=== PATIENT | male | born 1945 | race Caucasian/White ===

== ENCOUNTER 2021-01-09 07:00 | Outpatient (CLI) | payer MEDICARE | END 2021-01-09 23:59 | disposition home or self-care (01) | LOC: COV 07:00 | PROVIDERS: ATTEND Student in an Organized Health Care Education/Training Program | DX: Z20.822 Contact with and (suspected) exposure to COVID-19 (principal) ==

== ENCOUNTER 2021-12-15 21:12 | Emergency (ER) | payer MEDICARE ==
[2021-12-15 21:31] LABS: BASOPHILS # (AUTO) 0.1 10^3/uL (0.0-0.1); BASOPHILS % (AUTO) 0.5 %; EOSINOPHILS # (AUTO) 0.2 10^3/uL (0.0-0.7); EOSINOPHILS % (AUTO) 2.1 %; HCT - HEMATOCRIT 43.6 % (42.0-52.0); HGB - HEMOGLOBIN 14.6 g/dL (14.0-18.0); LYMPHOCYTES # (AUTO) 1.3 10^3/uL (1.5-3.5); LYMPHOCYTES % (AUTO) 12.5 %; MEAN CORPUSCULAR HEMOGLOBIN 29.4 pg (27.0-31.0); MEAN CORPUSCULAR HGB CONC 33.5 g/dL (32.0-36.0); MEAN CORPUSCULAR VOLUME 87.9 fL (80.0-94.0); MEAN PLATELET VOLUME 10.3 fL (7.4-11.4); MONOCYTES # (AUTO) 0.8 10^3/uL (0.0-1.0); MONOCYTES % (AUTO) 8.3 %; NEUTROPHILS # (AUTO) 7.8 10^3/uL (1.5-6.6); NEUTROPHILS % (AUTO) 76.5 %; PLT - PLATELET COUNT 205 10^3/uL (130-450); RED BLOOD COUNT 4.96 10^6/uL (4.70-6.10); RED CELL DISTRIBUTION WIDTH 12.3 % (12.0-15.0); WHITE BLOOD COUNT 10.2 x10^3/uL (4.8-10.8)
[2021-12-15] MEDS ORDERED: diltiaZEM INJ 5 MG/ML VIAL IVP STA ×2 (21:41→22:09)
--- NOTE | 2021-12-15 21:44 | ED Physician Documentation ---
PD HPI CHEST PAIN - Stated complaint Stated Complaint: HIGH HR - Chief complaint Chief Complaint: Cardiac - History obtained from History obtained from: Patient, Family () - Additional information Additional information: 75-year-old male with past medical history of high blood pressure and hyperlipidemia presents with heart palpitations starting at 8:30 PM tonight while sitting and watching the [employer] game. Patient states he had been to [place] but does endorse marijuana usage today. Denies chest pain, shortness of breath, nausea, lightheadedness. Of note he does have a history of anxiety and he has had episodes of palpitations in the past lasting about 20 minutes at a time for the past 30 years, but states it has never been protracted. Review of Systems Ten Systems: 10 systems reviewed and negative Constitutional: denies: Fever, Chills Cardiac: reports: Palpitations. denies: Chest pain / pressure PD PAST MEDICAL HISTORY - Past Medical History Past Medical History: Yes Cardiovascular: Hypertension, High cholesterol, Murmur Respiratory: Sleep apnea GI: GERD, Diverticulitis, Other HEENT: Chronic vision loss, Chronic hearing loss Psych: Depression, Anxiety, Panic attacks - Past Surgical History Past Surgical History: Yes General: Colonoscopy - Present Medications Home Medications: Ambulatory Orders Medication Instructions Recorded Confirmed Atorvastatin Calcium [Lipitor] 06/21/13 06/21/13 Citalopram [CeleXA] 10 mg PO ONCE 06/21/13 06/21/13 lisinopriL [Lisinopril] 2.5 mg PO 06/21/13 06/21/13 Aspirin Chewable [[place] 81 mg PO DAILY 06/22/13 06/22/13 Aspirin] Clonazepam 1.5 mg PO 06/22/13 06/22/13 Multivit-Min/FA/Lycopene/Lut 1 each PO 06/22/13 06/22/13 [Centrum Silver Tablet] Tadalafil [Cialis] 20 mg PO 06/22/13 06/22/13 raNITIdine [Zantac] 150 mg PO DAILY 06/22/13 06/22/13 - Allergies Allergies/Adverse Reactions: Allergies Allergy/AdvReac Type Severity Reaction Status Date / Time tetracycline [Tetracycline] Allergy Unknown Unknown Verified 12/15/21 21:16 - Social History Does the pt smoke?: No Smoking Status: Never smoker Does the pt drink ETOH?: No Does the pt have substance abuse?: No - Immunizations Immunizations are current?: Yes PD ED PE NORMAL - Vitals Vital signs reviewed: Yes - General General: Alert and oriented X 3, No acute distress, Well developed/nourished - HEENT HEENT: Atraumatic, PERRL, EOMI - Neck Neck: Supple, no meningeal sign - Cardiac Cardiac: Other (Tachycardic rate, irregular rhythm) - Respiratory Respiratory: No respiratory distress, Clear bilaterally - Abdomen Abdomen: Non tender, Non distended - Back Back: No CVA TTP - Derm Derm: Normal color, Warm and dry - Extremities Extremities: No deformity - Neuro Neuro: Alert and oriented X 3, No motor deficit, No sensory deficit - Psych Psych: Normal mood, Normal affect Results - Vitals Vitals: Vital Signs - 24 hr 12/15/21 12/15/21 12/15/21 21:16 21:49 21:57 Temperature 36.5 C Heart Rate 164 H 108 H 117 H Respiratory 18 17 21 Rate Blood Pressure 142/91 H 117/65 100/49 L O2 Saturation 97 96 97 12/15/21 12/15/21 12/15/21 22:04 22:08 22:18 Temperature Heart Rate 122 H 130 H 91 Respiratory 14 17 16 Rate Blood Pressure 109/69 114/67 107/61 O2 Saturation 96 96 95 12/15/21 12/15/21 12/15/21 22:25 22:30 22:36 Temperature Heart Rate 83 90 96 Respiratory 15 13 12 Rate Blood Pressure 103/66 106/60 107/66 O2 Saturation 96 96 96 12/15/21 12/15/21 12/15/21 22:56 23:00 23:30 Temperature Heart Rate 110 H 103 H 117 H Respiratory 17 13 12 Rate Blood Pressure 109/62 98/75 110/83 H O2 Saturation 97 96 96 12/16/21 12/16/21 12/16/21 00:00 00:30 01:00 Temperature Heart Rate 92 113 H 131 H Respiratory 9 L 12 20 Rate Blood Pressure 104/65 122/72 122/71 O2 Saturation 96 94 97 12/16/21 12/16/21 12/16/21 01:30 02:00 02:30 Temperature 36.5 C Heart Rate 119 H 129 H 136 H Respiratory 13 13 15 Rate Blood Pressure 120/74 112/64 104/79 O2 Saturation 96 97 97 12/16/21 12/16/21 12/16/21 02:52 02:55 03:00 Temperature Heart Rate 143 H 58 L 56 L Respiratory 17 12 12 Rate Blood Pressure 104/79 102/60 96/58 L O2 Saturation 99 96 97 Oxygen O2 Source Room air - EKG (time done) 2122 Rate: Rate (enter#) (162) Rhythm: Atrial fibrillation - Labs Labs: Laboratory Tests 12/15/21 12/15/21 12/15/21 21:24 21:24 21:24 WBC 10.2 RBC 4.96 Hgb 14.6 Hct 43.6 MCV 87.9 MCH 29.4 MCHC 33.5 RDW 12.3 Plt Count 205 MPV 10.3 Neut # (Auto) 7.8 H Lymph # (Auto) 1.3 L [place] # (Auto) 0.8 Eos # (Auto) 0.2 Baso # (Auto) 0.1 Absolute Nucleated RBC 0.00 Nucleated RBC % 0.0 Sodium 143 Potassium 3.3 L Chloride 103 Carbon Dioxide 32 Anion Gap 8.0 BUN 16 Creatinine 0.8 Estimated GFR (MDRD) 94 Glucose 104 H Calcium 9.5 Total Bilirubin 0.8 AST 17 ALT 17 Alkaline Phosphatase 73 Troponin I High Sens 24.4 H* Total Protein 7.2 Albumin 4.5 Globulin 2.7 Albumin/Globulin Ratio 1.7 Lipase 30 Procedures - Cardioversion Attempt 1 Indication: Tachyarrhythmia CS via: AP approach Sync: Biphasic, 150j Post cardioversion rhythm: NSR Performed by: ED PD MEDICAL DECISION MAKING - ED course ED course: 75-year-old male presents with new onset atrial fibrillation starting this evening. We will attempt rate control medication followed by procainamide. If unsuccessful, electrical cardioversion according [facility] protocol. Patient now in NSR s/p electrical cardioversion. plan to dc home to f/u with refrigeration unit repairer and obtain outpatient echocardiogram. return precautions given. CRITICAL CARE TIME DOCUMENTATION I have personally performed a history, physical exam, and my own medical decision making. I have reviewed the note and agree with the findings and plan. Upon my evaluation, this patient had a high probability of imminent or life- threatening deterioration due to atrial fibrillation with RVR, which required my direct attention, intervention, and personal management. I have personally provided 45 minutes of critical care time exclusive of time spent on separately billable procedures. Time includes review of laboratory data, radiology results, discussion with consultants, and monitoring for potential decompensation. Interventions were performed as documented above. EDW 3:09 am 12/16/21 Departure - Departure Clinical Impression: Atrial fibrillation with RVR Condition: Good Instructions: Atrial Fibrillation Dc, Sedation Procedural Comments: You are seen in the emergency department for atrial fibrillation with rapid ventricular rate (RVR). A series of medications were attempted to treat your condition and then conscious sedation with electrical cardioversion was performed. This got your heart back into a normal rhythm. You will need to follow-up with a refrigeration unit repairer and have an outpatient echocardiogram performed. Please return to the emergency department immediately if you have recurrence of symptoms or if you have any new or worsening symptoms or other concerns.
[2021-12-15 21:48] LABS: ALBUMIN 4.5 g/dL (3.2-5.5); ALBUMIN/GLOBULIN RATIO 1.7 (1.0-2.2); BILIRUBIN,TOTAL 0.8 mg/dL (0.2-1.0); CALCIUM 9.5 mg/dL (8.5-10.3); CREATININE 0.8 mg/dL (0.6-1.2); POTASSIUM 3.3 mmol/L (3.5-5.0); TOTAL PROTEIN 7.2 g/dL (6.7-8.2)
--- NOTE | 2021-12-15 21:54 | XRAY Report ---
PROCEDURE: Chest 1 View X-Ray INDICATIONS: Chest pain TECHNIQUE: One view of the chest was acquired. COMPARISON: None. FINDINGS: Surgical changes and devices: None. Lungs and pleura: No pleural effusions or pneumothorax. Lungs are clear. Mediastinum: Mediastinal contours appear normal. Heart size is normal. Bones and chest wall: No suspicious bony lesions. Overlying soft tissues appear unremarkable. IMPRESSION: 1. No acute cardiopulmonary disease. Reviewed by: Yahir Tay MD on 12/15/2021 9:53 PM PDT Approved by: Yahir Tay MD on 12/15/2021 9:53 PM PDT Station ID: [id number]
[2021-12-15] MEDS ORDERED: PROCAINAMIDE 1,000 MG in SODIUM CHLORIDE 0.9% 240 ML IV STA (22:37)
[2021-12-15] MEDS ORDERED: PROCAINAMIDE 1,000 MG/10 ML SYRINGE ONE (22:55)
[2021-12-16] MEDS ORDERED: PROPOFOL 200 MG/20 ML VIAL IVP STA (02:27)
[2021-12-16] MEDS ORDERED: fentaNYL 100 MCG/2 ML VIAL IVP STA (02:27)
[2021-12-16 04:06] VITALS: BP 108/58
== END 2021-12-16 04:04 | disposition home or self-care (01) ==
LOC: ED 21:12
DX: I48.20 Chronic atrial fibrillation, unspecified (principal); I10 Essential (primary) hypertension
CPT/HCPCS: 36415; 71045; 80053; 83690; 84484; 85025; 92960; 93005; 96365; 96375; 99152; 99291; J2690; 94770

== ENCOUNTER 2022-09-10 19:38 | Emergency (ER) | payer MEDICARE ==
[2022-09-10] MEDS ORDERED: diltiaZEM INJ 5 MG/ML VIAL IVP STA (19:49)
[2022-09-10 20:04] LABS: BASOPHILS # (AUTO) 0.1 10^3/uL (0.0-0.1); BASOPHILS % (AUTO) 0.7 %; EOSINOPHILS # (AUTO) 0.4 10^3/uL (0.0-0.7); EOSINOPHILS % (AUTO) 5.6 %; HCT - HEMATOCRIT 42.8 % (42.0-52.0); HGB - HEMOGLOBIN 14.4 g/dL (14.0-18.0); LYMPHOCYTES # (AUTO) 1.4 10^3/uL (1.5-3.5); LYMPHOCYTES % (AUTO) 18.6 %; MEAN CORPUSCULAR HEMOGLOBIN 29.6 pg (27.0-31.0); MEAN CORPUSCULAR HGB CONC 33.6 g/dL (32.0-36.0); MEAN CORPUSCULAR VOLUME 88.1 fL (80.0-94.0); MONOCYTES # (AUTO) 0.6 10^3/uL (0.0-1.0); MONOCYTES % (AUTO) 7.5 %; NEUTROPHILS % (AUTO) 67.3 %; PLT - PLATELET COUNT 183 10^3/uL (130-450); RED BLOOD COUNT 4.86 10^6/uL (4.70-6.10); RED CELL DISTRIBUTION WIDTH 12.3 % (12.0-15.0); WHITE BLOOD COUNT 7.4 x10^3/uL (4.8-10.8)
[2022-09-10] MEDS ORDERED: fentaNYL 100 MCG/2 ML VIAL IVP STA ×2 (20:04→22:55)
[2022-09-10] MEDS ORDERED: PROPOFOL 200 MG/20 ML VIAL IVP STA ×2 (20:04→22:55)
--- NOTE | 2022-09-10 20:04 | ED Physician Documentation ---
PD HPI CHEST PAIN - Stated complaint Stated Complaint: CHEST PX - Chief complaint Chief Complaint: Cardiac - History obtained from History obtained from: Patient - Additional information Additional information: 76-year-old gentleman had a history of a single episode of paroxysmal atrial fibrillation once in December of last year. He was cardioverted here and subsequently he states he followed up with a international controller with a negative work- up with the exception of a mildly dilated aortic root. Tonight about half an hour ago he started to feel painless palpitations again similar to prior episode of atrial fibrillation. PD PAST MEDICAL HISTORY - Past Medical History Cardiovascular: Hypertension, High cholesterol, Murmur Respiratory: Sleep apnea GI: GERD, Diverticulitis, Other HEENT: Chronic vision loss, Chronic hearing loss Psych: Depression, Anxiety, Panic attacks - Past Surgical History Past Surgical History: Yes General: Colonoscopy - Present Medications Home Medications: Ambulatory Orders Medication Instructions Recorded Confirmed Atorvastatin Calcium [Lipitor] 06/21/13 06/21/13 Citalopram [CeleXA] 10 mg PO ONCE 06/21/13 06/21/13 lisinopriL [Lisinopril] 2.5 mg PO 06/21/13 06/21/13 Aspirin Chewable [[facility] [place] 81 mg PO DAILY 06/22/13 06/22/13 Aspirin] Clonazepam 1.5 mg PO 06/22/13 06/22/13 Multivit-Min/FA/Lycopene/Lut 1 each PO 06/22/13 06/22/13 [Centrum Silver Tablet] Tadalafil [Cialis] 20 mg PO 06/22/13 06/22/13 raNITIdine [Zantac] 150 mg PO DAILY 06/22/13 06/22/13 - Allergies Allergies/Adverse Reactions: Allergies Allergy/AdvReac Type Severity Reaction Status Date / Time tetracycline [Tetracycline] Allergy Unknown Unknown Verified 12/15/21 21:16 - Social History Does the pt smoke?: No Smoking Status: Never smoker Does the pt drink ETOH?: No Does the pt have substance abuse?: No - Immunizations Immunizations are current?: Yes PD ED PE NORMAL - Vitals Vital signs reviewed: Yes - General General: Alert and oriented X 3, No acute distress - Cardiac Cardiac: Other (Rapid and irregular without murmur) - Respiratory Respiratory: No respiratory distress, Clear bilaterally - Abdomen Abdomen: Non tender - Extremities Extremities: No edema, No calf tenderness / cord - Neuro Neuro: Alert and oriented X 3, Normal speech Results - Vitals Vitals: Vital Signs - 24 hr 09/10/22 09/10/22 09/10/22 19:45 20:04 20:46 Temperature 36.2 C L Heart Rate 153 H 164 H 118 H Respiratory 16 16 24 Rate Blood Pressure 132/75 H 155/114 H 135/85 H O2 Saturation 98 99 96 If not protocol : Oxygen Flow, liters/minute 09/10/22 09/10/22 09/10/22 20:48 23:25 23:32 Temperature Heart Rate 140 H 55 L 61 Respiratory 24 16 16 Rate Blood Pressure 135/85 H 113/77 112/54 L O2 Saturation 96 97 98 If not protocol : Oxygen Flow, liters/minute 09/10/22 09/10/22 09/11/22 23:37 23:45 00:05 Temperature Heart Rate 55 L 54 L 55 L Respiratory 15 16 18 Rate Blood Pressure 113/77 92/51 L 99/59 L O2 Saturation 97 97 97 If not protocol 2 : Oxygen Flow, liters/minute Oxygen O2 Source Nasal cannula - EKG (time done) 1943 EKG releavant findings:: EKG personally interpreted by author of this note. Relevant findings are: Rate: Rate (enter#) (156) Rhythm: Atrial fibrillation [place]: Normal QRS: Normal Ischemia: Non specific changes. No: ST elevation c/w ischemia - Labs Labs: Laboratory Tests 09/10/22 09/10/22 09/10/22 19:59 19:59 19:59 WBC 7.4 RBC 4.86 Hgb 14.4 Hct 42.8 MCV 88.1 MCH 29.6 MCHC 33.6 RDW 12.3 Plt Count 183 MPV 11.0 Neut # (Auto) 5.0 Lymph # (Auto) 1.4 L [place] # (Auto) 0.6 Eos # (Auto) 0.4 Baso # (Auto) 0.1 Absolute Nucleated RBC 0.00 Nucleated RBC % 0.0 PT 10.5 INR 0.9 Sodium 139 Potassium 3.3 L Chloride 103 Carbon Dioxide 29 Anion Gap 7.0 BUN 15 Creatinine 0.9 Estimated GFR (MDRD) 82 L Glucose 108 H Calcium 8.6 Magnesium 1.8 Total Bilirubin 0.6 AST 19 ALT 19 Alkaline Phosphatase 82 Total Protein 6.9 Albumin 4.1 Globulin 2.8 Albumin/Globulin Ratio 1.5 TSH 09/10/22 19:59 WBC RBC Hgb Hct MCV MCH MCHC RDW Plt Count MPV Neut # (Auto) Lymph # (Auto) [place] # (Auto) Eos # (Auto) Baso # (Auto) Absolute Nucleated RBC Nucleated RBC % PT INR Sodium Potassium Chloride Carbon Dioxide Anion Gap BUN Creatinine Estimated GFR (MDRD) Glucose Calcium Magnesium Total Bilirubin AST ALT Alkaline Phosphatase Total Protein Albumin Globulin Albumin/Globulin Ratio TSH 5.76 H Procedures - Procedural sedation Sedation prep: Informed consent, PE performed, ASA 1 - healthy Sedation Medications: propofol (70mg after 25mcg ffentanyl) Mallampati classification: I Patient status during sedation: Responds to tactile Sedation recovery: Recovered uneventfully Time in sedation (Minutes): 10 - Cardioversion - Major 1 Time of attempt: 20:30 Indication: Tachyarrhythmia Risks, benefits, alternatives explained to: Pt CS via: Pads, AP approach Sync: 100j Post cardioversion rhythm: A-fib Performed by: ED MD 2 Time of attempt: 20:31 Indication: Tachyarrhythmia CS via: Pads, AP approach Sync: 150j Post cardioversion rhythm: NSR Performed by: ED MD PD Medical Decision Making - ED course ED course: 76-year-old gentleman presents with rapid symptomatic A-fib of very short duration. He had partial rate control with diltiazem and then we cardioverted him out of it on the second cardioversion here. He was in sinus rhythm now for only a few minutes and then went back into atrial fibrillation so we will hang a procainamide drip. Subsequently his magnesium and potassium were a bit low so these were repleted as well. Care to overnight emergency physician pending completion of procainamide drip. Departure - Departure Disposition: 01 Home, Self Care Clinical Impression: Atrial fibrillation Qualifiers: Atrial fibrillation type: paroxysmal Qualified Code(s): I48.0 - Paroxysmal atrial fibrillation Condition: Good Record reviewed to determine appropriate education?: Yes Instructions: Atrial Fibrillation Dc, ED Sedation Procedural Discon Comments: Call your doctor to arrange a follow-up appointment, make the next available appointment. In the interim, return anytime if worse or if new symptoms develop. Discharge Date/Time: 09/11/22 00:05
[2022-09-10 20:10] LABS: INR 0.9 (0.8-1.2); PT - PROTHROMBIN TIME 10.5 secs (9.9-12.6)
[2022-09-10 20:20] LABS: ALBUMIN 4.1 g/dL (3.2-5.5); ALBUMIN/GLOBULIN RATIO 1.5 (1.0-2.2); BILIRUBIN,TOTAL 0.6 mg/dL (0.2-1.0); CALCIUM 8.6 mg/dL (8.5-10.3); CREATININE 0.9 mg/dL (0.6-1.2); MAGNESIUM 1.8 mg/dL (1.7-2.8); POTASSIUM 3.3 mmol/L (3.5-5.0); TOTAL PROTEIN 6.9 g/dL (6.7-8.2)
[2022-09-10] MEDS ORDERED: PROCAINAMIDE 1,000 MG in SODIUM CHLORIDE 0.9% 240 ML IV STA (20:46)
[2022-09-10] MEDS ORDERED: MAGNESIUM SULFATE 2 GRAM 2 GM/50 ML BAG IV ONE (21:18)
[2022-09-10] MEDS ORDERED: POTASSIUM BICARB 25 MEQ TABLET PO STA (21:18)
[2022-09-10] MEDS ORDERED: PROCAINAMIDE 1,000 MG/10 ML SYRINGE ONE (21:34)
--- NOTE | 2022-09-11 | ED Physician Documentation ---
History of Present Illness - Stated complaint Stated Complaint: CHEST PX - Chief complaint Chief Complaint: Cardiac - Additonal information Additional information: Patient endorsed to me by Dr. Whaley awaiting completion of his procainamide for repeat cardioversion. PD PAST MEDICAL HISTORY - Past Medical History Cardiovascular: Hypertension, High cholesterol, Murmur Respiratory: Sleep apnea GI: GERD, Diverticulitis, Other HEENT: Chronic vision loss, Chronic hearing loss Psych: Depression, Anxiety, Panic attacks - Past Surgical History Past Surgical History: Yes General: Colonoscopy - Present Medications Home Medications: Ambulatory Orders Medication Instructions Recorded Confirmed Atorvastatin Calcium [Lipitor] 06/21/13 06/21/13 Citalopram [CeleXA] 10 mg PO ONCE 06/21/13 06/21/13 lisinopriL [Lisinopril] 2.5 mg PO 06/21/13 06/21/13 Aspirin Chewable [[facility] Caleb 81 mg PO DAILY 06/22/13 06/22/13 Aspirin] Clonazepam 1.5 mg PO 06/22/13 06/22/13 Multivit-Min/FA/Lycopene/Lut 1 each PO 06/22/13 06/22/13 [Centrum Silver Tablet] Tadalafil [Cialis] 20 mg PO 06/22/13 06/22/13 raNITIdine [Zantac] 150 mg PO DAILY 06/22/13 06/22/13 - Allergies Allergies/Adverse Reactions: Allergies Allergy/AdvReac Type Severity Reaction Status Date / Time tetracycline [Tetracycline] Allergy Unknown Unknown Verified 12/15/21 21:16 - Social History Does the pt smoke?: No Smoking Status: Never smoker Does the pt drink ETOH?: No Does the pt have substance abuse?: No - Immunizations Immunizations are current?: Yes PD ED PE NORMAL - Vitals Vital signs reviewed: Yes - General General: Alert and oriented X 3, No acute distress, Well developed/nourished - HEENT HEENT: Atraumatic, PERRL, EOMI - Neck Neck: Supple, no meningeal sign - Cardiac Cardiac: Other (Tachycardic rate, irregular rhythm) - Respiratory Respiratory: No respiratory distress, Clear bilaterally Results - Vitals Vitals: Vital Signs - 24 hr 09/10/22 09/10/22 09/10/22 19:45 20:04 20:46 Temperature 36.2 C L Heart Rate 153 H 164 H 118 H Respiratory 16 16 24 Rate Blood Pressure 132/75 H 155/114 H 135/85 H O2 Saturation 98 99 96 If not protocol : Oxygen Flow, liters/minute 09/10/22 09/10/22 09/10/22 20:48 23:25 23:32 Temperature Heart Rate 140 H 55 L 61 Respiratory 24 16 16 Rate Blood Pressure 135/85 H 113/77 112/54 L O2 Saturation 96 97 98 If not protocol : Oxygen Flow, liters/minute 09/10/22 09/10/22 23:37 23:45 Temperature Heart Rate 55 L 54 L Respiratory 15 16 Rate Blood Pressure 113/77 92/51 L O2 Saturation 97 97 If not protocol 2 : Oxygen Flow, liters/minute Oxygen O2 Source Nasal cannula - EKG (time done) 9217 EKG releavant findings:: EKG personally interpreted by author of this note. Relevant findings are: Rate: Rate (enter#) (54) Rhythm: NSR [place]: LAD (borderline) Intervals: Normal [place] QRS: Normal Ischemia: Normal ST segments - Labs Labs: Laboratory Tests 09/10/22 09/10/22 09/10/22 19:59 19:59 19:59 WBC 7.4 RBC 4.86 Hgb 14.4 Hct 42.8 MCV 88.1 MCH 29.6 MCHC 33.6 RDW 12.3 Plt Count 183 MPV 11.0 Neut # (Auto) 5.0 Lymph # (Auto) 1.4 L [place] # (Auto) 0.6 Eos # (Auto) 0.4 Baso # (Auto) 0.1 Absolute Nucleated RBC 0.00 Nucleated RBC % 0.0 PT 10.5 INR 0.9 Sodium 139 Potassium 3.3 L Chloride 103 Carbon Dioxide 29 Anion Gap 7.0 BUN 15 Creatinine 0.9 Estimated GFR (MDRD) 82 L Glucose 108 H Calcium 8.6 Magnesium 1.8 Total Bilirubin 0.6 AST 19 ALT 19 Alkaline Phosphatase 82 Total Protein 6.9 Albumin 4.1 Globulin 2.8 Albumin/Globulin Ratio 1.5 TSH 09/10/22 19:59 WBC RBC Hgb Hct MCV MCH MCHC RDW Plt Count MPV Neut # (Auto) Lymph # (Auto) [place] # (Auto) Eos # (Auto) Baso # (Auto) Absolute Nucleated RBC Nucleated RBC % PT INR Sodium Potassium Chloride Carbon Dioxide Anion Gap BUN Creatinine Estimated GFR (MDRD) Glucose Calcium Magnesium Total Bilirubin AST ALT Alkaline Phosphatase Total Protein Albumin Globulin Albumin/Globulin Ratio TSH 5.76 H Procedures - Cardioversion - Major Attempt 2 Time of attempt: 22:00 Indication: Tachyarrhythmia Risks, benefits, alternatives explained to: Pt Prep: IV, O2, personnel monitor, Pulse ox, Airway equip Meds: Fentanyl (25mg fentanyl, 80mg propofol) CS via: Pads, AP approach Sync: Biphasic (120j) Post cardioversion rhythm: NSR Performed by: ED MD PD Medical Decision Making - ED course ED course: Patient endorsed to me by Dr. Barnes awaiting completion of procainamide to reattempt cardioversion. Cardioversion implied with respiratory therapy on scene. Procedure went well, uncomplicated with methodist of normal sinus rhythm. Advised patient to follow-up with primary care provider and showcase maker. Return precautions given. Departure - Departure Disposition: 01 Home, Self Care Clinical Impression: Atrial fibrillation Qualifiers: Atrial fibrillation type: paroxysmal Qualified Code(s): I48.0 - Paroxysmal atrial fibrillation Condition: Good Instructions: Atrial Fibrillation Dc, ED Sedation Procedural Discon Comments: Call your doctor to arrange a follow-up appointment, make the next available appointment. In the interim, return anytime if worse or if new symptoms develop.
[2022-09-11 00:07] VITALS: BP 99/59
== END 2022-09-11 00:05 | disposition home or self-care (01) ==
LOC: ED 19:38
DX: I48.0 Paroxysmal atrial fibrillation (principal); E83.42 Hypomagnesemia; E87.6 Hypokalemia
CPT/HCPCS: 36415; 80053; 83735; 84443; 85025; 85610; 92960; 93005; 96365; 96366; 96368; 96375; 99152; 99284; 99285; A9270; J2690

== ENCOUNTER 2023-08-01 21:18 | Emergency (ER) | payer MEDICARE ==
[2023-08-01] MEDS: SODIUM CHLORIDE 0.9% 1,000 ML IV STA (21:48)
[2023-08-01] MEDS: diltiaZEM INJ 5 MG/ML VIAL IVP ONE (21:51)
[2023-08-01 21:54] LABS: BASOPHILS % (AUTO) 0.4 %; EOSINOPHILS # (AUTO) 0.2 10^3/uL (0.0-0.7); EOSINOPHILS % (AUTO) 3.2 %; HGB - HEMOGLOBIN 14.4 g/dL (14.0-18.0); LYMPHOCYTES # (AUTO) 1.2 10^3/uL (1.5-3.5); LYMPHOCYTES % (AUTO) 16.1 %; MEAN CORPUSCULAR HEMOGLOBIN 28.4 pg (27.0-31.0); MEAN CORPUSCULAR VOLUME 88.8 fL (80.0-94.0); MEAN PLATELET VOLUME 10.9 fL (7.4-11.4); MONOCYTES # (AUTO) 0.6 10^3/uL (0.0-1.0); MONOCYTES % (AUTO) 7.4 %; NEUTROPHILS # (AUTO) 5.5 10^3/uL (1.5-6.6); NEUTROPHILS % (AUTO) 72.6 %; PLT - PLATELET COUNT 178 10^3/uL (130-450); RED BLOOD COUNT 5.07 10^6/uL (4.70-6.10); RED CELL DISTRIBUTION WIDTH 12.4 % (12.0-15.0); WHITE BLOOD COUNT 7.5 x10^3/uL (4.8-10.8)
[2023-08-01 22:08] LABS: ALBUMIN 4.7 g/dL (3.2-5.5); BILIRUBIN,TOTAL 0.6 mg/dL (0.2-1.0); CALCIUM 9.8 mg/dL (8.5-10.3); CREATININE 0.9 mg/dL (0.6-1.3); MAGNESIUM 1.8 mg/dL (1.7-2.3); POTASSIUM 3.5 mmol/L (3.5-4.5)
[2023-08-01] MEDS ORDERED: PROCAINAMIDE 100 MG/1 ML 10 ML MDV IV ONE (22:13)
--- NOTE | 2023-08-01 22:33 | ED Physician Documentation ---
History of Present Illness - Stated complaint Stated Complaint: HIGH HR - Chief complaint Chief Complaint: Cardiac - History obtained from History obtained from: Patient - Additonal information Additional information: Patient is a 77-year-old male with a history of paroxysmal atrial fibrillation presenting for evaluation of feeling his heart racing and palpitations approximately 30 minutes ago as he was watching TV. He states this feels similar to other episodes of A-fib he has had. He has been seen twice in our emergency department for this and required electrical cardioversion both times. He is not currently anticoagulated. He is denies other episodes of feeling palpitations or his heart racing. Denies associated chest pain or shortness of air. Denies recent illness. No fever, coughing, vomiting. Has had some looser stools recently. Review of Systems Constitutional: denies: Fever Cardiac: reports: Palpitations. denies: Chest pain / pressure Respiratory: denies: Dyspnea GI: denies: Abdominal Pain, Vomiting Musculoskeletal: denies: Extremity swelling PD PAST MEDICAL HISTORY - Past Medical History Past Medical History: Yes Cardiovascular: Hypertension, High cholesterol, Atrial fibrillation, Murmur Respiratory: Sleep apnea GI: GERD, Diverticulitis, Other HEENT: Chronic vision loss, Chronic hearing loss Psych: Depression, Anxiety, Panic attacks - Past Surgical History Past Surgical History: Yes General: Colonoscopy - Present Medications Home Medications: Ambulatory Orders Medication Instructions Recorded Confirmed Atorvastatin Calcium [Lipitor] 06/21/13 06/21/13 Citalopram [CeleXA] 10 mg PO ONCE 06/21/13 06/21/13 lisinopriL [Lisinopril] 2.5 mg PO 06/21/13 06/21/13 Aspirin Chewable [[facility] Caleb 81 mg PO DAILY 06/22/13 06/22/13 Aspirin] Clonazepam 1.5 mg PO 06/22/13 06/22/13 Multivit-Min/FA/Lycopene/Lut 1 each PO 06/22/13 06/22/13 [Centrum Silver Tablet] Tadalafil [Cialis] 20 mg PO 06/22/13 06/22/13 raNITIdine [Zantac] 150 mg PO DAILY 06/22/13 06/22/13 - Allergies Allergies/Adverse Reactions: Allergies Allergy/AdvReac Type Severity Reaction Status Date / Time tetracycline [Tetracycline] Allergy Unknown Unknown Verified 08/01/23 21:22 - Social History Does the pt smoke?: No Smoking Status: Never smoker Does the pt drink ETOH?: No Does the pt have substance abuse?: No - Immunizations Immunizations are current?: Yes PD ED PE NORMAL - General General: Alert and oriented X 3, No acute distress, Well developed/nourished - HEENT HEENT: Atraumatic, Moist mucous membranes, Pharynx benign - Neck Neck: Supple, no meningeal sign - Cardiac Cardiac: Strong equal pulses, Other (Tachycardic, irregularly irregular) - Respiratory Respiratory: No respiratory distress, Clear bilaterally - Abdomen Abdomen: Normal bowel sounds, Soft, Non tender, Non distended - Derm Derm: Warm and dry - Extremities Extremities: No edema - Neuro Neuro: Normal speech Results - Vitals Vitals: Vital Signs - 24 hr 08/01/23 08/01/23 08/01/23 21:22 21:51 21:57 Temperature 36.8 C Heart Rate 110 H 156 H 106 H Respiratory 16 20 20 Rate Blood Pressure 151/77 H 133/77 H 138/82 H O2 Saturation 97 96 96 If not protocol : Oxygen Flow, liters/minute 08/01/23 08/01/23 08/01/23 22:05 22:30 23:00 Temperature Heart Rate 97 138 H 136 H Respiratory 16 20 16 Rate Blood Pressure 117/63 133/77 H 108/60 O2 Saturation 94 94 95 If not protocol : Oxygen Flow, liters/minute 08/01/23 08/01/23 08/01/23 23:32 23:38 23:43 Temperature Heart Rate 147 H 74 61 Respiratory 20 26 H 18 Rate Blood Pressure 122/60 131/80 H 112/70 O2 Saturation 97 96 96 If not protocol 6 : Oxygen Flow, liters/minute 08/01/23 08/01/23 08/01/23 23:46 23:50 23:52 Temperature Heart Rate 59 L 140 H 61 Respiratory 10 L 24 16 Rate Blood Pressure 99/59 L 99/61 O2 Saturation 95 97 If not protocol : Oxygen Flow, liters/minute 08/02/23 00:30 Temperature Heart Rate 68 Respiratory 16 Rate Blood Pressure 105/74 O2 Saturation 98 If not protocol : Oxygen Flow, liters/minute Oxygen O2 Source Room air - EKG (time done) 2128 EKG releavant findings:: EKG personally interpreted by author of this note. Relevant findings are: Rate 162, A-fib with RVR, no STEMI, ST depressions in multiple leads likely rate related 2349 EKG releavant findings:: EKG personally interpreted by author of this note. Relevant findings are: Rate 61, normal sinus rhythm, no STEMI, QTc 398 - Labs Labs: Laboratory Tests 08/01/23 08/01/23 21:44 21:44 WBC 7.5 RBC 5.07 Hgb 14.4 Hct 45.0 MCV 88.8 MCH 28.4 MCHC 32.0 RDW 12.4 Plt Count 178 MPV 10.9 Neut # (Auto) 5.5 Lymph # (Auto) 1.2 L [place] # (Auto) 0.6 Eos # (Auto) 0.2 Baso # (Auto) 0.0 Absolute Nucleated RBC 0.00 Nucleated RBC % 0.0 Sodium 139 Potassium 3.5 Chloride 105 Carbon Dioxide 27 Anion Gap 7.0 BUN 18 Creatinine 0.9 Estimated GFR (MDRD) 82 L Glucose 135 H Calcium 9.8 Magnesium 1.8 Total Bilirubin 0.6 AST 15 ALT 12 Alkaline Phosphatase 70 Total Protein 7.0 Albumin 4.7 Globulin 2.3 Albumin/Globulin Ratio 2.0 Lipase 17 Procedures - Procedural sedation Sedation prep: Informed consent, Time out completed, Last meal (just prior to arrival - pizza), PE performed, ASA 2 - mild disease Sedation Medications: propofol (70mg) Mallampati classification: II Patient status during sedation: Responds to tactile, Respiratory depression, Needed resp assistance Sedation recovery: Recovered uneventfully Time in sedation (Minutes): 10 - Cardioversion - Major 1 Indication: Tachyarrhythmia Risks, benefits, alternatives explained to: Pt Prep: IV, O2, campus monitor, Pulse ox, Airway equip Meds: Fentanyl (Propofol) CS via: Pads, AP approach Sync: Biphasic, 150j Post cardioversion rhythm: A-fib Performed by: ED MD 2 Indication: Tachyarrhythmia Risks, benefits, alternatives explained to: Pt Prep: IV, O2, campus monitor, Pulse ox, Airway equip CS via: Pads, AP approach Sync: 200j Post cardioversion rhythm: NSR Performed by: ED PD Medical Decision Making - ED course Complexity details: reviewed results, re-evaluated patient, d/w patient, d/w family ED course: Patient is a 77-year-old male presenting with A-fib with RVR. Has had prior episodes of this and does have clear onset this evening. No chest pain or shortness of air. CBC and chemistries were reviewed without significant findings. Patient received IV fluids, Cardizem, procainamide without any change in rate or rhythm. He has required electrical cardioversion on his 2 prior ED visits for this and again consented for procedural sedation and electrical cardioversion. He was successfully cardioverted into a normal sinus rhythm after 2 shocks. He returned to his preprocedural baseline. He does follow with Dr. Gandhi. Patient and his were instructed on need for close follow-up with cardiology regarding further management of his atrial fibrillation. Patient is advised on concerning symptoms to return for. - Critical Care Time(min): 41 Time Includes: Direct patient care, Review records, Reassess patient, Document care Data interpretation: Labs Procedures excluded from critical care time: EKG Departure - Departure Disposition: 01 Home, Self Care Clinical Impression: Atrial fibrillation with RVR Condition: Good Instructions: ED Afib, ED Sedation Procedural Discon Follow-Up: Myke Gandhi MD [Physician No Access] - Comments: You were evaluated for an episode of atrial fibrillation. We attempted to get your heart rate under control with medications as well as convert you back to a regular rhythm but the medication did not work. Therefore we opted to use electrical cardioversion which was successful after the second attempt. I would recommend close follow-up with your normalizer as now this is the third presentation to the emergency department with a similar episode and requiring cardioversion. Please continue with staying hydrated. Take your medications as otherwise prescribed. Return to the ER with any worsening. Forms: PCP List Discharge Date/Time: 08/02/23 00:15
[2023-08-01] MEDS: PROCAINAMIDE 1,000 MG/10 ML SYRINGE IV SCH (22:48)
[2023-08-01] MEDS: PROCAINAMIDE 1,000 MG/10 ML SYRINGE IV STA (22:57)
[2023-08-01] MEDS: fentaNYL 100 MCG/2 ML VIAL IVP STA (23:30)
[2023-08-01] MEDS: PROPOFOL 200 MG/20 ML VIAL IVP STA (23:35)
[2023-08-02 00:41] VITALS: BP 105/74; O2SAT 98
== END 2023-08-02 00:15 | disposition home or self-care (01) ==
LOC: ED 21:18
DX: I48.91 Unspecified atrial fibrillation (principal); E78.00 Pure hypercholesterolemia, unspecified; I10 Essential (primary) hypertension; Z79.899 Other long term (current) drug therapy; Z79.82 Long term (current) use of aspirin
CPT/HCPCS: 36415; 80053; 83690; 83735; 85025; 92960; 93005; 96361; 96374; 96375; 99152; 99285; 99291; J2690

== ENCOUNTER 2023-10-02 09:44 | Emergency (ER) | payer MEDICARE ==
[2023-10-02 10:17] LABS: BASOPHILS % (AUTO) 0.2 %; EOSINOPHILS # (AUTO) 0.3 10^3/uL (0.0-0.7); EOSINOPHILS % (AUTO) 2.1 %; HCT - HEMATOCRIT 42.2 % (42.0-52.0); HGB - HEMOGLOBIN 13.6 g/dL (14.0-18.0); LYMPHOCYTES # (AUTO) 0.8 10^3/uL (1.5-3.5); LYMPHOCYTES % (AUTO) 6.9 %; MEAN CORPUSCULAR HEMOGLOBIN 28.8 pg (27.0-31.0); MEAN CORPUSCULAR HGB CONC 32.2 g/dL (32.0-36.0); MEAN CORPUSCULAR VOLUME 89.4 fL (80.0-94.0); MEAN PLATELET VOLUME 10.9 fL (7.4-11.4); MONOCYTES # (AUTO) 0.9 10^3/uL (0.0-1.0); MONOCYTES % (AUTO) 7.7 %; NEUTROPHILS # (AUTO) 10.1 10^3/uL (1.5-6.6); NEUTROPHILS % (AUTO) 82.9 %; PLT - PLATELET COUNT 200 10^3/uL (130-450); RED BLOOD COUNT 4.72 10^6/uL (4.70-6.10); RED CELL DISTRIBUTION WIDTH 12.1 % (12.0-15.0); WHITE BLOOD COUNT 12.2 x10^3/uL (4.8-10.8)
--- NOTE | 2023-10-02 10:24 | ED Physician Documentation ---
PD HPI DYSPNEA - Stated complaint Stated Complaint: IRREGULAR HR - Chief complaint Chief Complaint: Cardiac - History obtained from History obtained from: Patient - History of Present Illness Timing - onset: Last night Timing - onset during: Light activity Timing - duration: Hours Timing - details: Abrupt onset, Still present Inciting event(s): URI (mild symptoms last week, mostly improving.) Associated symptoms: Cough. No: Fever, Wheezing, Bilateral edema Similar symptoms before: Diagnosis (paraoxysmal atrial fib.) Recently seen: Clinic (Cardology, Dr. Jacobs, and is to get stress test and ECHO soon.) Review of Systems Constitutional: denies: Fever, Chills Nose: reports: Congestion. denies: Rhinorrhea / runny nose Throat: denies: Sore throat Respiratory: reports: Cough GI: denies: Vomiting, Diarrhea Neurologic: denies: Generalized weakness, Near syncope, Altered mental status PD PAST MEDICAL HISTORY - Past Medical History Past Medical History: Yes Cardiovascular: Hypertension, High cholesterol, Atrial fibrillation, Murmur Respiratory: Sleep apnea GI: GERD, Diverticulitis, Other HEENT: Chronic vision loss, Chronic hearing loss Psych: Depression, Anxiety, Panic attacks - Past Surgical History Past Surgical History: Yes General: Colonoscopy - Present Medications Home Medications: Ambulatory Orders Medication Instructions Recorded Confirmed Atorvastatin Calcium [Lipitor] 06/21/13 06/21/13 Citalopram [CeleXA] 10 mg PO ONCE 06/21/13 06/21/13 lisinopriL [Lisinopril] 2.5 mg PO 06/21/13 06/21/13 Aspirin Chewable [[facility] Caleb 81 mg PO DAILY 06/22/13 06/22/13 Aspirin] Clonazepam 1.5 mg PO 06/22/13 06/22/13 Multivit-Min/FA/Lycopene/Lut 1 each PO 06/22/13 06/22/13 [Centrum Silver Tablet] Tadalafil [Cialis] 20 mg PO 06/22/13 06/22/13 raNITIdine [Zantac] 150 mg PO DAILY 06/22/13 06/22/13 - Allergies Allergies/Adverse Reactions: Allergies Allergy/AdvReac Type Severity Reaction Status Date / Time tetracycline [Tetracycline] Allergy Unknown Unknown Verified 10/02/23 09:55 - Social History Does the pt smoke?: No Smoking Status: Never smoker Does the pt drink ETOH?: No Does the pt have substance abuse?: No - Immunizations Immunizations are current?: Yes - POLST Patient has POLST: No PD ED PE NORMAL - Vitals Vital signs reviewed: Yes - General General: Alert and oriented X 3, No acute distress, Well developed/nourished - Neck Neck: Supple, no meningeal sign, No adenopathy - Cardiac Cardiac: No murmur. No: RRR (irregular and tachycardic c/w atrial fib. ) - Respiratory Respiratory: No respiratory distress, Clear bilaterally - Abdomen Abdomen: Soft, Non tender - Derm Derm: Normal color, Warm and dry - Extremities Extremities: No edema, No calf tenderness / cord - Neuro Neuro: Alert and oriented X 3, No motor deficit, Normal speech Results - Vitals Vitals: Vital Signs - 24 hr 10/02/23 10/02/23 10/02/23 09:52 10:17 11:27 Temperature 36.4 C L Heart Rate 87 155 H Respiratory 20 Rate Blood Pressure 137/113 H 107/61 Blood Pressure 102/73 [Left] O2 Saturation 97 10/02/23 10/02/23 10/02/23 11:30 11:35 11:40 Temperature Heart Rate 139 H 126 H 131 H Respiratory Rate Blood Pressure 96/53 L 113/77 96/68 Blood Pressure [Left] O2 Saturation 10/02/23 10/02/23 10/02/23 11:55 12:10 13:15 Temperature 97.7 C H Heart Rate 128 H 114 H 53 L Respiratory 20 Rate Blood Pressure 94/61 89/56 L 92/64 Blood Pressure [Left] O2 Saturation 92 10/02/23 14:00 Temperature Heart Rate 52 L Respiratory 13 Rate Blood Pressure 94/59 L Blood Pressure [Left] O2 Saturation 100 Oxygen O2 Source Room air - Labs Labs: Laboratory Tests 10/02/23 10/02/23 10/02/23 10:10 10:10 10:10 WBC 12.2 H RBC 4.72 Hgb 13.6 L Hct 42.2 MCV 89.4 MCH 28.8 MCHC 32.2 RDW 12.1 Plt Count 200 MPV 10.9 Neut # (Auto) 10.1 H Lymph # (Auto) 0.8 L [place] # (Auto) 0.9 Eos # (Auto) 0.3 Baso # (Auto) 0.0 Absolute Nucleated RBC 0.00 Nucleated RBC % 0.0 Sodium 139 Potassium 3.8 Chloride 105 Carbon Dioxide 26 Anion Gap 8.0 BUN 19 Creatinine 0.9 Estimated GFR (MDRD) 82 L Glucose 126 H Calcium 9.5 Magnesium 1.9 Total Bilirubin 0.6 AST 12 ALT 11 Alkaline Phosphatase 68 Troponin I High Sens 30.5 H* Total Protein 6.6 Albumin 4.1 Globulin 2.5 Albumin/Globulin Ratio 1.6 Lipase < 10 L Procedures - Procedural sedation Sedation prep: Informed consent, Time out completed, Last meal (last night dinner), ASA 2 - mild disease Sedation Medications: propofol (total dose 140 mg) Mallampati classification: I Patient status during sedation: Drowsy, Responds to verbal, Vitals remained stable, Maintained airway, Recovered uneventfully Sedation recovery: Recovered uneventfully, Back to baseline Time in sedation (Minutes): 15 - Cardioversion - Major 1 Indication: Tachyarrhythmia Risks, benefits, alternatives explained to: Pt Prep: IV, O2, playground monitor, Pulse ox, Airway equip CS via: Pads Sync: Biphasic, 150j Post cardioversion rhythm: NSR Performed by: ED MD Medical Decision Making - ED course Complexity details: considered differential (The patient with paroxysmal atrial fibrillation with onset last night. He can distinctly feel when it starts. He took a dose of metoprolol twice this morning by 2 hours. Still in A- fib. Here for evaluation.), d/w patient ED course: He has relatively new diagnosis of paroxysmal A-fib. He has had several episodes. He has been to the ER twice for them with cardioversion and once which is medicine. He sees Dr. Gandhi cardiology out of [facility]. The patient is to get a echocardiogram and stress test. Apparently holding off on beta-blockers until the stress test which sounds like it is might be as early as this coming week but is still to be scheduled. They had received word from the office and a call from them to schedule it. The patient states Dr. Gandhi had done a prescription for the "pill in the pocket idea but no daily medicines as yet. The patient does present in A-fib with rate in the 140s variably down to 120s. He is not in any apparent distress. Blood pressure slightly soft and I would attribute to decreased heart output and also the effect of beta-pablo. His main electrolytes were normal on blood testing. It was a mild troponin elevation as would be expected with the rapid A-fib. He was not having any chest pain. The patient was given dose IV of metoprolol along with a fluid bolus. His blood pressure improved and heart rate lowered down to 100-1 20 but still atrial fibrillation. Given his prior experience with cardioversion which was a very positive experience for him, we discussed it and opted to go to cardioversion. This was done with sedation and cardioversion successfully back to sinus rhythm. See separate procedure notes. The patient recovered to baseline was feeling well with good vital signs and discharged stable. Departure - Departure Disposition: Home, Self Care Clinical Impression: Paroxysmal atrial fibrillation with rapid ventricular response Condition: Stable Record reviewed to determine appropriate education?: Yes Instructions: ED Afib, ED Cardioversion Electrical Follow-Up: Jaxson Hwang MD [Primary Care Provider] - Myke Gandhi MD [Physician No Access] - Comments: Continue with your current medication regimen. Stay well-hydrated through the day today. Contact your vaudeville actor on Wednesday and see if they want to change any medication regimen such as a daily dose of a beta-pablo etc. Part of that would be determined by if you are stress test as soon as you would want to hold your beta-pablo for 2 to 3 days before the stress test. At this point we will just have you continue with the current regimen. Forms: PCP List Discharge Date/Time: 10/02/23 14:54
[2023-10-02 10:42] LABS: TROPONIN I HIGH SENSITIVITY 30.5 ng/L (2.3-19.7)
[2023-10-02 10:47] LABS: ALBUMIN 4.1 g/dL (3.2-5.5); ALBUMIN/GLOBULIN RATIO 1.6 (1.0-2.2); ALKALINE PHOSPHATASE 68 IU/L (42-121); ALT ALANINE AMINOTRANSFERASE 11 IU/L (10-60); AST ASPARTATE AMINOTRANSFERASE 12 IU/L (10-42); BILIRUBIN,TOTAL 0.6 mg/dL (0.2-1.0); BUN - BLOOD UREA NITROGEN 19 mg/dL (6-20); CALCIUM 9.5 mg/dL (8.5-10.3); CARBON DIOXIDE - CO2 26 mmol/L (21-32); CHLORIDE 105 mmol/L (101-111); CREATININE 0.9 mg/dL (0.6-1.3); GFR - MDRD 82 (>89); GLUCOSE 126 mg/dL (74-104); POTASSIUM 3.8 mmol/L (3.5-4.5); SODIUM 139 mmol/L (135-145); TOTAL PROTEIN 6.6 g/dL (6.4-8.9)
[2023-10-02 10:48] LABS: LIPASE < 10 U/L (11-82)
--- NOTE | 2023-10-02 11:00 | XRAY Report ---
PROCEDURE: Chest 1V INDICATIONS: Chest pain TECHNIQUE: One view of the chest was acquired. COMPARISON: 12/15/2021 FINDINGS: Surgical changes and devices: None. Lungs and pleura: No dense consolidation or pleural effusion. Lung volumes are low. Mediastinum: Cardiomediastinal contours are unchanged. Prominent right mediastinal contour again see n. Bones and chest wall: Degenerative findings. IMPRESSION: Limited single view radiograph with low lung volumes. No acute abnormality/changes. Reviewed by: Zen López MD on 10/02/2023 10:59 AM PDT Approved by: Zen López MD on 10/02/2023 10:59 AM PDT Station ID: [id number]
[2023-10-02] MEDS: METOPROLOL 5 MG/5 ML VIAL IVP STA (11:23)
[2023-10-02] MEDS: SODIUM CHLORIDE 0.9% 1,000 ML IV STA ×2 (11:24→13:12)
[2023-10-02] MEDS: PROPOFOL 200 MG/20 ML VIAL IVP STA (13:35)
[2023-10-02 14:10] VITALS: BP 94/59; O2SAT 100
== END 2023-10-02 14:54 | disposition home or self-care (01) ==
LOC: ED 09:44
DX: I48.0 Paroxysmal atrial fibrillation (principal)
CPT/HCPCS: 36415; 80053; 83690; 83735; 84484; 85025; 92960; 93005; 99152; 99284